=== PATIENT | male | born 1990 | race Caucasian/White ===

== ENCOUNTER → 2020-07-28 | Outpatient (CLI) | payer OTHER | LOC: EMI 13:00 | DX: G54.0 Brachial plexus disorders (principal); G83.21 Monoplegia of upper limb affecting right dominant side; S09.90XA Unspecified injury of head, initial encounter; R29.898 Other symptoms and signs involving the musculoskeletal system; M25.78 Osteophyte, vertebrae; M48.02 Spinal stenosis, cervical region | CPT/HCPCS: 72141 ==